=== PATIENT | female | born 1945 | race Caucasian/White ===

== ENCOUNTER 2018-02-26 01:08 | Emergency (ER) | payer OTHER, MEDICARE ==
[~2018-02-26] VITALS: Ht 167.6 cm; Wt 116.6 kg
[2018-02-26] MEDS ORDERED: METHOTREXATE 22.5 MG PO (01:26)
[2018-02-26] MEDS ORDERED: SYNTHROID125 MC1 PO (01:27)
[2018-02-26] MEDS ORDERED: FOLIC ACID1 MG PO (01:27)
[2018-02-26] MEDS ORDERED: LAMISIL AF133 GM TOP (01:46)
[2018-02-26] MEDS ORDERED: DIFLUCAN150 MG PO (01:46)
[2018-02-26] MEDS ORDERED: KEFLEX500 M1 PO (01:46)
[2018-02-26 02:03] VITALS: BP 162/89
== END 2018-02-26 02:03 | disposition home or self-care (01) ==
LOC: M.ERS 01:08
DX: B36.9 Superficial mycosis, unspecified (principal); Z90.710 Acquired absence of both cervix and uterus

== ENCOUNTER 2018-09-01 23:12 | Inpatient (IN) | payer OTHER, MEDICARE ==
[~2018-09-01] VITALS: Ht 165.1 cm; Wt 123.8 kg
--- NOTE | ~2018-09-01 | CON ---
[address] [address] CONSULTATION Name: KALEIGH HERNANDEZ Room: [address] IN M.R.#: [id number] Admission: 09/02/18 Attend Phys: Alex Germain Discharge: Date of : 49 Report #: [id number] THIS REPORT FOR: //name// CC: [place] physician/PCP Willard Alcantara DATE OF SERVICE: 09/02/2018 CHIEF COMPLAINT: Chest pain. HISTORY OF PRESENT ILLNESS: The patient is a 73-year-old female who presents with a resting chest discomfort. It was started in the front of her chest, radiated to her back. It was sharp in nature. It lasted several minutes long. By the time she got to the Emergency Room, it was normal. Her presenting ECG was normal and she was admitted overnight for observation and her serial cardiac troponin levels have been normal. This morning, she is asymptomatic. She was fairly hypertensive on presentation with systolic pressures in the 190s. Apparently, she had been treated as an outpatient at one point with carvedilol by Dr. Gonzalez, her primary care doctor, but the patient self-discontinued it because she thought her blood pressure was normal. She has no documented history of heart disease. She thinks she might have had a stress test 2-4 years ago. It was normal. She is a nonsmoker. There is a strong family history of heart disease. Her mother of an [place] before the age of 60. PAST MEDICAL HISTORY: Hypertension, she has a history of elevated cholesterol as well, hypothyroidism, psoriatic arthritis, chronic foot pain and knee pain. HOME MEDICATIONS: Methotrexate 8 mg weekly, Synthroid 125 mcg daily and folic acid. SOCIAL HISTORY: She is a former smoker. REVIEW OF SYSTEMS: GENERAL: No fevers or chills. PULMONARY: No wheezing or cough. GENITOURINARY: No dysuria or hematuria. SKIN: No rashes. CARDIOVASCULAR: No dyspnea on exertion or orthopnea. Positive chest pain. No edema. NEUROLOGIC: [place] [address] CONSULTATION Name: KALEIGH HERNANDEZ Room: [address] IN [facility].#: [id number] Admission: 09/02/18 Attend Phys: Alex Germain Discharge: Date of : 49 Report #: [id number] HEMATOLOGIC: No anemia or bleeding disorders. SKIN: No rashes. RENAL: No history of kidney failure. ENDOCRINE: She is not known to be a diabetic. PHYSICAL EXAMINATION: VITAL SIGNS: This morning, her blood pressure has improved on medical therapy, it is 145/67 with a pulse of 63. GENERAL: This is an obese, elderly female. She is sitting in a chair. She is alert and oriented, in no apparent distress. HEENT: Eyes: EOMs intact. No facial asymmetry. NECK: Supple. No jugular venous distention. Upstrokes are normal. CARDIOVASCULAR: Regular. I cannot hear a murmur or S3. LUNGS: Clear to auscultation bilaterally. ABDOMEN: Nontender. EXTREMITIES: There is no peripheral edema. Electrocardiogram shows sinus rhythm with normal ST segments x 2. LABORATORY DATA: Troponin I is 0.06 x 3 sets. Hemoglobin is 12.2. Chest x-ray shows no acute cardiopulmonary process. IMPRESSION AND PLAN: 1. Chest pain. Her symptoms could be related to an anginal process. She has ruled out for an myocardial infarction and her evaluation could not be completed as an outpatient. She should be discharged on aspirin until our workup is completed. If this is normal, she may require GI evaluation or treatment for a possible reflux esophagitis. 2. Hypertension. She was started on lisinopril in the hospital and I would continue this upon discharge. 3. History of hyperlipidemia. Lipids should be surveyed. They are pending. FOLLOWUP: We will arrange for followup with our nurse practitioner in 2-3 weeks. By: [id number] Samaniego MD, FACC /nt
[~2018-09-01 23:12] MED LIST: DIFLUCAN150 MG PO; FOLIC ACID1 MG PO; KEFLEX500 M1 PO; LAMISIL AF133 GM TOP; METHOTREXATE 22.5 MG PO; SYNTHROID125 MC1 PO
[2018-09-01 23:14] VITALS: BP 167/78
[2018-09-01 23:45] LABS: ABSOLUTE BASOPHILS 0.1 thou/uL (0.0-0.2); ABSOLUTE EOSINOPHILS 0.1 thou/uL (0.0-0.7); ABSOLUTE LYMPHOCYTES 1.6 thou/uL (0.8-5.3); ABSOLUTE MONOCYTES 0.5 thou/uL (0.0-1.2); ABSOLUTE NEUTROPHILS 6.3 thou/uL (1.6-8.1); BASOPHILS 0.7 %; EOSINOPHILS 1.1 %; HEMATOCRIT 35.7 % (37.0-47.0); HEMOGLOBIN 12.2 gm/dL (12.0-15.0); LYMPHOCYTES 18.7 %; MCH 31.7 pg (26.0-34.0); MCHC 34.1 g/dL (28.0-37.0); MCV 92.9 fL (80.0-100.0); MONOCYTES 5.4 %; MPV 8.4 fl. (7.2-11.1); NUCLEATED RBCS 0 /100WBC; PLATELET COUNT* 194 thou/uL (150-400); POLYS 74.1 %; RBC 3.84 mil/uL (4.20-5.00); RDW-CV 14.7 % (10.5-14.5); WBC 8.5 thou/uL (4.0-11.0)
[2018-09-01 23:52] LABS: ANION GAP 5 mmol/L (7-16); BUN 18 mg/dL (7-18); CALCIUM 8.8 mg/dL (8.5-10.1); CHLORIDE 108 mmol/L (98-107); CO2 31 mmol/L (21-32); CREATININE 0.9 mg/dL (0.6-1.3); GLUCOSE 122 mg/dL (70-99); POTASSIUM 3.9 mmol/L (3.5-5.1); SODIUM 144 mmol/L (136-145)
[2018-09-01 23:56] LABS: PROTIME 10.3 Seconds (9.20-11.50)
[2018-09-01 23:59] LABS: URINE BILIRUBIN NEGATIVE (Negative); URINE BLOOD TRACE (Negative); URINE CLARITY CLEAR; URINE COLOR YELLOW; URINE GLUCOSE-RANDOM NEGATIVE (Negative); URINE KETONES NEGATIVE (Negative); URINE LEUKOCYTES-REFLEX NEGATIVE (Negative); URINE NITRITE-REFLEX NEGATIVE (Negative); URINE PROTEIN NEGATIVE (Negative); URINE UROBILINOGEN 0.2 E.U./dl (0.2-1.0)
[2018-09-02 00:03] LABS: ALBUMIN 3.2 g/dL (3.4-5.0); ALKALINE PHOSPHATASE 86 U/L (46-116); LIPASE 102 U/L (73-393); NT-PRO BRAIN NAT PEPTIDE 32 pg/mL (<300); SGOT 12 U/L (15-37); SGPT 17 U/L (30-65); TOTAL BILIRUBIN 0.6 mg/dL (<0.1-1.0); TOTAL PROTEIN 6.3 g/dL (6.4-8.2); TROPONIN-I LEVEL <0.06 ng/mL (<0.06)
[2018-09-02 01:05] VITALS: BP 177/71
[2018-09-02 04:00] VITALS: BP 133/70
--- NOTE | 2018-09-02 05:29 | NUR ---
REPORT RECEIVED FROM MALOU IN ER @ 0100. PT ARRIVED TO FLOOR @ 0115 PER CART. ABLE TO WALK FROM CART TO BED WITHOUT DIFFICULTY. PT REPORTS SHE WEARS AN ORTHOPEDIC BOOT FOR HER LEFT FOOT AND USES A WALKER AT HOME TO GET UP FROM HER BED. PT DENIES PAIN. REPORTS SHE IS HAVING "DISCOMFORT AND NOT PAIN." AND THAT IT IS IN HER MID BACK BELOW HER LEFT SHOULDER BLADE IS UNCOMFORTABLE. PT ALSO KEEPS STATING "I THINK ITS JUST INDIGESTION." DENIES N/V, SOA, ETC. PT DOES REPORT CONGESTION SYMPTOMS THAT "MUST'VE JUST STARTED." DENIES COUGH AFTER COUGHING IN FRONT OF THIS RN. PT SEEMS CONFUSED ABOUT MEANING OF MULTIPLE QUESTIONS DURING ASSESSMENTS AT TIMES AND RAMBLES OFF TOPIC. BUT IS ALERT AND ORIENTED X4 AND EVENTUALLY ABLE TO ANSWER QUESTIONS. REMOVED NITRO PASTE. TRACING SR ON MONITOR. CALL LIGHT IN REACH. PT FELL ASLEEP VERY QUICKLY AFTER ADMISSION ASSESSMENT. HOURLY ROUNDING FOR SAFETY.
[2018-09-02 08:00] VITALS: BP 178/87
[2018-09-02 08:54] LABS: CHOLESTEROL 191 mg/dL (<200); HDL CHOLESTEROL 57 mg/dL (>40); LDL CHOLESTEROL 126 mg/dL (<100); SERUM ASSESSMENT Clear; TC:HDL 3.4 Ratio (Not establshd); TRIGLYCERIDE 42 mg/dL (<150); VLDL 8 mg/dL (<40)
[2018-09-02 12:00] VITALS: BP 148/91
--- NOTE | 2018-09-02 12:42 | EKG ---
[place] [address] ELECTROCARDIOGRAM REPORT Name: KALEIGH HERNANDEZ Room: [address] ADM IN M.R.#: [id number] Admission: 09/02/18 Attend Phys: Alex Germain Discharge: Date of : 49 Report #: [id number] THIS REPORT FOR: //name// 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: MILTON : 1945 Requested By: Georgina Balbuena Order Number: [id number] MD: Antonio Samaniego Measurements Intervals [place] Rate: 62 P: 21 NM: 204 QRS: 50 QRSD: 102 T: 35 QT: 398 QTc: 405 Interpretive Statements Sinus rhythm Abnormal R-wave progression, early transition No previous ECG available for comparison Electronically Signed On 09-02-2018 12:42:13 [employer] by Antonio Samaniego [email or web address] <ELECTRONICALLY SIGNED> By: Antonio Samaniego MD, [facility] 09/02/18 1242 005 Antonio Samaniego MD, FAC /EPI
--- NOTE | 2018-09-02 12:42 | EKG ---
[place] [address] ELECTROCARDIOGRAM REPORT Name: KALEIGH HERANNDEZ Room: [address] ADM IN .R.#: [id number] Admission: 09/02/18 Attend Phys: Alex Germain Discharge: Date of : 49 Report #: [id number] THIS REPORT FOR: //name// [facility] ED Test Date: 2018-09-01 Test Time: 23:18:51 Pat Name: KALEIGH HERNANDEZ Department: Room: [facility] Gender: F [employer] W[employer] Officer: RASHAD : 1945 Requested By: Georgina Balbuena Order Number: [id number] MD: Antonio Samaniego Measurements Intervals [place] Rate: 77 P: 52 MO: 180 QRS: 15 QRSD: 104 T: 36 QT: 381 QTc: 432 Interpretive Statements Sinus rhythm No previous ECG available for comparison Electronically Signed On 09-02-2018 12:42:08 [employer]UR MIXER by Antonio Samaniego [email or web address] <ELECTRONICALLY SIGNED> By: Antonio Samaniego MD, [facility] 09/02/18 1242 2318 17 Antonio Samaniego MD, FACC /EPI
[2018-09-02 15:15] VITALS: BP 152/65
--- NOTE | 2018-09-02 18:11 | NUR ---
ASSUMED PT CARE AT 0730, FULL ASSESMENT DONE CHARTED. PT A/O X4, IS ANXIOUS AT TIMES. PTS BP ELEVATED THIS AM, MEDS STARTED PER MAR. PT REPORTS FEELING BETTER TODAY, DENIES CHEST PAIN. SR ON THE MONITOR. VSS, PT UP AD JACKELYN. USES CALL LIGHT APPROPRIALTY, WILL CONTINUE WITH PLAN OF CARE.
[2018-09-02 19:56] VITALS: BP 120/43
[2018-09-03] VITALS: BP 152/74
--- NOTE | 2018-09-03 00:51 | NUR ---
ASSUMED PT CARE @ 1930. PT WAS CALM AND COOPERATIVE. DENIED ANY CHEST PAIN OR ANY DISCOMFORT. NO SOA REPORTED OR OBSERVED. PT REPORTED "IM GLAD I CAME IN SO I COULD GET MY BLOOD PRESSURE FIXED AND WORK ON MY ANXIETY." PT REPORTS SHE "BROKE UP WITH HER BOYFRIEND TUESDAY NIGHT." PT IS CURRENTLY SLEEPING. CALL LIGHT IN REACH. HOURLY ROUNDING FOR SAFETY.
[2018-09-03 02:05] LABS: GLYCOHEMOGLOBIN (HGB A1C) 5.4 % (4.8-5.6)
[2018-09-03 04:04] VITALS: BP 143/67
[2018-09-03 09:21] VITALS: BP 163/75
[2018-09-03 12:00] VITALS: BP 147/78
[2018-09-03] MEDS ORDERED: ZESTRIL10 MG PO (12:02)
[2018-09-03] MEDS ORDERED: ESCITALOPRAM OX10 MG PO (12:02)
[2018-09-03 12:22] VITALS: BP 147/78
[2018-09-03 14:25] VITALS: BP 147/78
--- NOTE | 2018-09-03 15:47 | NUR ---
I ASSUMED CARE OF THE PATIENT AT 0700. SHE IS ALERT AND ORIENTED X4 AND IS UP AD JACKELYN. PATIENT HAS A BOOT FOR HER LEFT FOOT BUT LEFT IT AT HOME. SECURITY HELPED CLEAN THE SNOW/ICE FROM HER CAR. BED IS IN THE LOW LOCKED POSITION AND CALL LIGHT IS IN REACH. HOURLY ROUNDING WAS COMPLETED AND PATIENT NEEDS WERE MET. PAIN IS DENIED. IV WAS D/C'D AND PATIENT WAS DISCHARGED TO HOME AT 1425. SCRIPTS WERE SENT WITH PATIENT.
== END 2018-09-03 14:15 | disposition home or self-care (01) | DRG 305 ==
LOC: M.ERS 23:12 → M.TBA-ER 09-02 00:30 → M.2W 09-02 00:49
PROVIDERS: Emergency Medicine; Internal Medicine; ADMIT Internal Medicine
DX: I16.0 Hypertensive urgency (principal); E03.9 Hypothyroidism, unspecified; I10 Essential (primary) hypertension; L40.50 Arthropathic psoriasis, unspecified; G89.29 Other chronic pain; M79.673 Pain in unspecified foot; F03.90 Unspecified dementia, unspecified severity, without behavioral disturbance, psychotic disturbance, mood disturbance, and anxiety; F41.9 Anxiety disorder, unspecified; Z90.710 Acquired absence of both cervix and uterus; Z90.49 Acquired absence of other specified parts of digestive tract; Z82.49 Family history of ischemic heart disease and other diseases of the circulatory system; Z87.891 Personal history of nicotine dependence

== ENCOUNTER → 2018-12-20 | Outpatient (CLI) | payer OTHER, MEDICARE ==
[~2018-12-20] MED LIST changes: +ESCITALOPRAM OX10 MG PO; +ZESTRIL10 MG PO
== END ==
LOC: M.MRI 11-16 07:30
DX: S96.812A Strain of other specified muscles and tendons at ankle and foot level, left foot, initial encounter (principal); M76.822 Posterior tibial tendinitis, left leg; M77.52 Other enthesopathy of left foot and ankle; X58.XXXA Exposure to other specified factors, initial encounter; Y93.89 Activity, other specified; Y92.89 Other specified places as the place of occurrence of the external cause; Y99.8 Other external cause status